=== PATIENT | male | born 1950 | race Hispanic/Latino ===

== ENCOUNTER → 2020-04-06 | Outpatient (CLI) | payer MEDICARE ==
[~2020-04-06] MED LIST: IOPAMIDOL 370 MG/ML 200 ML INFUS..BTL INJ ONE; METOPROLOL TARTRATE INJ 1 MG/ML VIAL ONE; NITROGLYCERIN 0.4 MG SUBL ONE; SODIUM CHLORIDE 0.9% 100 ML ONE
[2020-04-06 08:35] LABS: CREATININE, SERUM 5.89 mg/dL (0.72-1.25)
--- NOTE | 2020-04-07 11:02 | Diagnostic Imaging Report ---
EXAM: CALCIUM SCORE AND CORONARY CTA INDICATION: ^[id number] ^[id number] ^ANGINA,CAD COMPARISON: None. TECHNIQUE: Multi-detector CT technology was employed (64 MDCT Teros). Minimal slice thickness with retrospective gating was performed following the intravenous administration of contrast material. The patient was premedicated with 20 mg i.v. metoprolol and 0.4 mg sublingual nitroglycerin for heart rate control and coronary dilation, respectively. IV CONTRAST: 100 mL of Isovue-370 ORAL CONTRAST: None COMPLICATIONS: None RADIATION DOSE: Total DLP: 2109 mGy*cm Estimated effective dose: (DLP x 0.015 x size factor) mSv CTDIvol has been reviewed. It is below the limits set by the Radiation Protocol Committee (RPC). For optimization of anatomic evaluation, multiplanar reconstruction, maximum intensity projections, and advanced 3-D off-line postprocessing were performed on a dedicated stand-alone workstation under the direct supervision of the interpreting physician. QUALITY: Motion artifact limits evaluation of the RCA. FINDINGS: CALCIUM SCORE: The observed Agatston Calcium Score of 1304 is at percentile 90% for subjects of the same age and gender who are free of clinical cardiovascular disease and treated diabetes. The Agatston score for each vessel is as follows: LM: 316 LAD: 913 LCx: 73 RCA: 1.93 DISTRIBUTION OF THE CALCIFIED PLAQUES: Extensive calcified plaque throughout the coronary arteries. CORONARY ANATOMY: There is normal origin of the coronary arteries. Left Main Coronary Artery: The left main is normal sized vessel that bifurcates into the LAD and circumflex. Heavily calcified plaque involving the entire left main coronary artery results in severe stenosis (greater than 50%). Left Anterior Descending Coronary Artery: The LAD is a normal size vessel that wraps around the apex. It gives rise to 2 acute diagonal branches. Severe calcified with small soft tissue component plaque throughout the LAD resulting in focal severe stenosis (70-99%) in the proximal segment, 8 mm from its ostium, and more distally, 24 mm from the ostium. Distal LAD is patent and normal in caliber. Left Circumflex Coronary Artery: The LCX is a normal size vessel, which is non-dominant. It gives rise to 1 obtuse marginal branches. Focal mixed plaque in the proximal LCx, 5 mm from its origin, resulting in severe stenosis (70-99%). Noted that the soft tissue plaque has low attenuation and an eccentric component and positive remodeling, which may be related to some degree of unstable plaque. The remaining LCx is widely patent. Right Coronary Artery: The RCA is a normal size vessel, which is dominant. It gives rise to a conus branch, AV bob branch, and 2 acute marginal branches. In its distal segment it bifurcates into the PDA and PV branch. Evaluation of the RCA is limited due to motion artifact. The most proximal segment is widely patent without atherosclerotic disease, and then there are scattered calcified plaques probably resulting in at least moderate stenosis (50-69%). The estimated ejection fraction. The PDA is small but appears patent without significant stenosis. CARDIAC MORPHOLOGY AND FUNCTION: The right and left atria and ventricles are morphologically normal. There is normal resting global left ventricular systolic function. LVEF: 50%, LV end diastolic volume: 1:30 cc LV end systolic volume: 64.7 cc LV stroke volume: 65.3 cc LIMITED CHEST: Limited views of the visualized chest show no abnormality within chest wall and mediastinum. Few mildly prominent noncalcified bilateral hilar and mediastinal lymph nodes with the largest in the right lower paratracheal/proximal right hilar region, measuring up to 1.1 cm in transverse diameter on series 3, image 69. Some of the lymph nodes have central calcification and may reflect sequela of granulomatous disease. Small hiatal hernia. The visualized lungs are clear. The visualized portions of the ascending and descending thoracic aorta are of normal size. LIMITED ABDOMEN: Limited images of the upper abdomen reveal no abnormalities of the visualized organs. BONES: No acute osseous abnormalities. IMPRESSION: 1. Total Agatston Calcium Score: 1304 that corresponds to percentile 90%, representing severe plaque burden. 2. Normal coronary anatomy. 3. Severe three-vessel coronary artery disease, including severe stenosis of the left main coronary artery, proximal and distal LAD, proximal LCx, and at least moderate stenosis of the mid LCx. -There are some CT features in the LCx plaque that can be seen in unstable plaque. CAD-[place]: 4BN Management: Consider conventional angiography. Reference: J Cardiovasc Comput Tomogr. Nov-Dec 2015;10(4):269-81. Signed by: Dr. Yani Smith M.D. on 04/07/2020 10:58 AM
== END ==
LOC: CT 07:41
PROVIDERS: ATTEND Internal Medicine Interventional Cardiology
DX: I25.10 Atherosclerotic heart disease of native coronary artery without angina pectoris (principal)
CPT/HCPCS: 36415; 75574; 82565; 84520; J7050; Q9967